=== PATIENT | female | born 1955 | race Caucasian/White ===

== ENCOUNTER → 2016-11-14 | Outpatient (CLI) | payer MEDICARE, MEDICAID ==
--- NOTE | 2016-11-15 20:48 | EEG ---
DATE OF PROCEDURE: 11/14/2016 REFERRING PHYSICIAN: Dr. Donnie Morris DIAGNOSIS: Seizures. EEG #: [id number] HISTORY: Patient is a 61-year-old woman with history of seizures and concussion. This EEG was done to rule out epileptic potential. She is currently on atenolol , melatonin, Dilantin, primidone, aspirin, simvastatin. TECHNICAL DESCRIPTION: This digital EEG was recorded by 21 scalp, ear and two EKG electrodes and was reviewed in bipolar and referential montages following reformatting in 10-20 international electrode placement system. INTERPRETATION: The patient was noted to be in awake and drowsy states during this EEG. Resting awake background rhythm consisted of 8 - 9 Hz alpha activity measuring 15 - 40 microvolts in amplitude. Stage I and II sleep were reviewed and were symmetric bilaterally. Hyperventilation remained unremarkable. Photic stimulation remained unremarkable. Bilateral frontal and temporal 2 - 3 Hz delta activity was noted intermittently lasting 2 or 3 seconds each time. No epileptiform abnormalities were seen. No clinical or electrographic seizures were recorded. CONCLUSION: This EEG in awake, drowsy states, stage I and II sleep is abnormal due to presence of intermittent frontal arrhythmic delta activity (FIRDA) consistent with nonspecific diffuse cerebral dysfunction such as seen in encephalopathy due to multiple potential causes including toxic, metabolic, infectious, autoimmune, medication related or structural abnormalities of brain. No epileptiform abnormalities were seen. Clinical correlation is recommended. MTDD
== END ==
LOC: M SLEEP 08:18
PROVIDERS: ATTEND Internal Medicine Cardiovascular Disease
DX: R56.9 Unspecified convulsions (principal)